=== PATIENT | female | born 1955 | race Caucasian/White ===

== ENCOUNTER 2022-09-24 15:07 | Outpatient (REF) | payer BC, SELFPAY ==
--- NOTE | ~2022-09-24 | XR_ITS ---
EXAMINATION: XR CHEST CLINICAL INFORMATION: Chronic cough COMPARISON: None available. TECHNIQUE: 2 views of the chest were obtained. FINDINGS: The cardiac and mediastinal contours are normal. The lungs are clear. No pleural effusion or pneumothorax. Mild old-appearing T8 vertebral body compression fracture. Degenerative changes of the spine. XR/XR chest 2V IMPRESSION: No evidence for acute disease in the chest.
== END 2022-09-24 15:08 | disposition home or self-care (01) ==
LOC: HO.XRAY 15:07
PROVIDERS: PCP Internal Medicine; Visit Provider Hospitalist
DX: R05.3 Chronic cough (principal); R06.00 Dyspnea, unspecified; K14.8 Other diseases of tongue
CPT/HCPCS: 71046

== ENCOUNTER 2022-09-27 10:46 | Outpatient (REF) | payer BC, SELFPAY ==
--- NOTE | 2022-09-27 12:01 | PFT_ITS ---
INDICATION: Asthma. SPIROMETRY: FEV1 to FVC of 76% with an FEV1 of 1.9 L, which is 79% predicted and an FVC of 2.5 L, which is 79% predicted. No significant response to bronchodilators noted. To note, the [id number] decreased down to 62% predicted. Maximum voluntary ventilation 66% predicted. LUNG VOLUMES: Total lung capacity 95% predicted. DIFFUSION CAPACITY: 100% predicted. COMPARISON: None. INTERPRETATION: No obstructive nor restrictive ventilatory defects identified. No significant response to bronchodilator is noted. There is mild decrease in the maximum voluntary ventilation secondary to likely deconditioning. Lung volumes are within normal limits. Diffusion capacity is within normal limits. If asthma is in the differential, a methacholine challenge may be helpful in assessing for hyperreactive airways. Clinical correlation warranted. Sanjiv Martel MD MR/MODL / [id number]
== END 2022-09-27 10:47 | disposition home or self-care (01) ==
LOC: HO.RESP 10:46
PROVIDERS: PCP Internal Medicine; Visit Provider Hospitalist
DX: R05.3 Chronic cough (principal)
CPT/HCPCS: 94060; 94727; 94729

== ENCOUNTER 2023-01-24 13:51 | Outpatient (AMB) | payer BC, SELFPAY ==
--- NOTE | 2023-01-24 13:59 | MHC.OFFVIS ---
Intake Vital Signs 01/24/23 14:12 Height 5 ft 4 in Weight 181 lb 2 oz BMI 31.1 BP 136/70 Blood Pressure Location Lt brachial Position Sitting Respiration 16 Pulse 88 Pulse Source Pulse Oximeter Pulse Oximetry (%) 96 Oxygen Delivery Method Room Air Intake Visit Reasons: BACK PAIN/RIGHT HIP PAIN Allergies No Known Allergies Allergy (Verified 01/24/23 14:02) HPI HPI Comments History of Present Illness Details Amarilis is a very pleasant 67 year old female who presents to the office today for evaluation management of her chronic back and right hip pain. Patient reports that she has been suffering with this pain for many years. She has a history of surgery to her lumbar spine in 2017 or 2018. Patient reports that she fell several months ago and injured her lower back. She was evaluated by knowing the orthopedic surgeons and her ?back doctor ?. She states 1 of them told her she had a L5 compression fracture, the other did not agree with this finding. She states that neither of them have offered her any further treatment for her pain. She is currently taking Motrin as needed for pain. She states that Tylenol does nothing for her pain. Patient had imaging of her lumbar spine and right hip, these were done at outside facility so results are not available for review. She had injection for right GTB that did not improve her pain. The patient states that she has not been able to tolerate physical therapy or home exercise program as this is too painful for her. Patient denies radiation of the pain down either leg, she denies shooting, stabbing or shocking radiating pain. Pain is worse with sitting for extended periods time, standing for extended periods time, climbing stairs and laying on her right side. Patient denies red flag symptoms including new loss of bowel, bladder or saddle anesthesia. In terms of muscle damage condition is described as spasming, hot, burning, stabbing, sharp, tingling, tiring, cramping, pins and needles. Pain is negatively impacting patient's general activity, walking, sleep, mood and work. PFSH Medical History (Updated 01/24/23 @ 14:54 by Bea Cantor APRN, BILLIARD PLAYER) Dyspnea Chronic cough Social History (Updated 09/24/22 @ 15:18 by NEO Peguero) Patient Tobacco Use Status: Former Tobacco user Tobacco use type: Cigarette Years Smoked: 5 Years Review of Systems Const All systems reviewed & are unremarkable except as noted in HPI and below Physical Exam Vital Signs: Last Vital Signs Pulse 88 01/24/23 14:12 Resp 16 01/24/23 14:12 BP 136/70 01/24/23 14:12 Pulse Ox 96 01/24/23 14:12 Oxygen Delivery Method Room Air 01/24/23 14:12 BMI result Body Mass Index 31.1 General: awake, alert, oriented. Answers questions appropriately. Fully engaged in examination. Skin: warm, dry, intact HEENT: Normocephalic. Hearing intact. Cardiac: External chest normal in appearance. Respiratory: No cough, audible wheezing or stridor. Abdomen: without gross distension. MS: No obvious swelling or deformities. Able to stand on bilateral tiptoes and bilateral heels.? Able to transition from sit to stand unassisted. Ambulates with bilaterally normal heel strike and toe off Neurological: Oriented to person, place, time and situation. Thought process intact. Psychiatric: Appropriate mood and affect. Good judgment and insight. Back/Spine/Pelvis Other: Lumbar exam: Able to stand on bilateral tiptoes and bilateral heels. Able to transition from sit to stand unassisted. Ambulates with bilaterally normal heel strike and toe off Visual inspection without gross abnormality Tender to palpation over PSIS with increase in pain to the right groin Tender to palpation over GTB ROM: limited secondary to pain with extension to 15 degrees. flexion to 60degrees Strength: 5/5 BLE Sensation: intact and symmetric BLE DTR: intact and symmetric Straight leg raises with and without dorsiflexion negative bilaterally Facet loading positive bilaterally GERONIMO positive on the right Thigh thrust positive on the right SI compression positive on the right Gaenslen positive on right Assessment & Plan Assessment & Plan (1) Sacroiliac joint dysfunction of right side: Code(s): M53.3 - Sacrococcygeal disorders, not elsewhere classified (2) Post laminectomy syndrome: Code(s): M96.1 - Postlaminectomy syndrome, not elsewhere classified (3) Lumbar spondylosis: Code(s): M47.816 - Spondylosis without myelopathy or radiculopathy, lumbar region Plan Amarilis is a very pleasant 67-year-old female who presented to the office today for evaluation management of her chronic lower back and right hip pain History, physical exam and provocative testing was consistent with right sacroiliac joint dysfunction, lumbar spondylosis and post laminectomy syndrome MRI lumbar spine without contrast ordered for further evaluation. Tizanidine 2 mg p.o. q.h.s. as needed for muscle spasm Patient has exhausted conservative therapy including Tylenol, nonsteroidal anti-inflammatory medication, injections. Patient is unable to tolerate physical therapy or home exercise program due to significant pain increase with activity. Discussed options for treatment including diagnostic interventional testing, steroid injections, peripheral nerve stimulation with Sprint, RFA and more permanent neuromodulation. Will schedule for fluoroscopy guided right diagnostic sacroiliac joint injection with local anesthetic. All questions and concerns have been answered and patient agrees with the plan. Follow up after injections and sooner if needed. Orders: Orders MR lumbar spine wo/w con Today M96.1 - Postlaminectomy syndrome, not elsewhere classified Medications: New tizanidine 2 mg PO BEDTIME PRN 30 tabs 0RF muscle spasticity Coding Level of Care Code New Pt Level 4 (35242) Diagnoses Sacroiliac joint dysfunction of right side M53.3 Post laminectomy syndrome M96.1 Lumbar spondylosis M47.816
[2023-01-24 14:12] VITALS: BP 136/70; PULSE 88; RESP 16; O2SAT 96; BMI 31.1
== END 2023-01-24 14:35 | disposition home or self-care (01) ==
PROVIDERS: PCP Internal Medicine; Visit Provider Registered Nurse Emergency
DX: M53.3 Sacrococcygeal disorders, not elsewhere classified (principal); M96.1 Postlaminectomy syndrome, not elsewhere classified; M47.816 Spondylosis without myelopathy or radiculopathy, lumbar region
CPT/HCPCS: 99204

== ENCOUNTER → 2023-01-24 13:51 | Outpatient (BNVA) | payer BC, SELFPAY | PROVIDERS: PCP Internal Medicine; Visit Provider Registered Nurse Emergency ==

== ENCOUNTER 2023-02-11 06:11 | Outpatient (REF) | payer BC, SELFPAY ==
--- NOTE | ~2023-02-11 | FL_ITS ---
EXAMINATION: XR FLUOROSCOPY WITH IMAGES CLINICAL INFORMATION: Sacrococcygeal disorders, not elsewhere classified. COMPARISON: None available. TECHNIQUE: Fluoroscopy Supervised By: Dr. Yusef Hernandez. Fluoroscopy Time: 0.1 minute. Cumulative Dose: 2.01 mGy. DAP: 0.0349 Gycm2. Images: 1. FINDINGS: Image demonstrates needle placement and contrast injection over the left sacroiliac joint FL/FL guidance in treatment room IMPRESSION: Fluoroscopy guidance for pain management procedure
== END 2023-02-11 06:12 | disposition home or self-care (01) ==
LOC: CF 06:11
PROVIDERS: Visit Provider Anesthesiology
DX: M53.3 Sacrococcygeal disorders, not elsewhere classified (principal); M96.1 Postlaminectomy syndrome, not elsewhere classified; M47.816 Spondylosis without myelopathy or radiculopathy, lumbar region
CPT/HCPCS: 27096; J2795; J3301; Q9967

== ENCOUNTER 2023-02-11 07:12 | Outpatient (AMB) | payer BC, SELFPAY ==
[2023-02-11 07:36] VITALS: BP 128/70; PULSE 77; RESP 12; O2SAT 98; BMI 30.9
--- NOTE | 2023-02-11 07:36 | A.OFFVIS_ITS ---
Intake Vital Signs 02/11/23 07:36 02/11/23 08:35 Height 5 ft 4 in 5 ft 4 in Weight 180 lb 180 lb BMI 30.9 30.9 BP 128/70 122/64 Blood Pressure Location Lt brachial Lt brachial Position Sitting Sitting Respiration 12 14 Pulse 77 77 Pulse Source Pulse Oximeter Pulse Oximeter Pulse Oximetry (%) 98 97 Oxygen Delivery Method Room Air Room Air Comment Pre-op post-op Intake Visit Reasons: R DX SIJ INJ/LOCAL Allergies No Known Allergies Allergy (Verified 02/11/23 07:37) PFSH Medical History (Updated 01/24/23 @ 14:54 by Bea Cantor APRN, CAREER PLACEMENT SERVICES COUNSELOR) Dyspnea Chronic cough Social History (Updated 09/24/22 @ 15:18 by Melody Reich Brenda) Patient Tobacco Use Status: Former Tobacco user Tobacco use type: Cigarette Years Smoked: 5 Years Physical Exam Vital Signs: Last Vital Signs Pulse 77 02/11/23 08:35 Resp 14 02/11/23 08:35 BP 122/64 02/11/23 08:35 Pulse Ox 97 02/11/23 08:35 Oxygen Delivery Method Room Air 02/11/23 08:35 BMI result Body Mass Index 30.9 Assessment & Plan Assessment & Plan (1) Sacroiliac joint dysfunction of right side: Code(s): M53.3 - Sacrococcygeal disorders, not elsewhere classified Plan: Right diagnostic sacroiliac joint injection Informed consent was explained thoroughly to the patient. All questions about benefits and risks for the procedure were answered. Patient came to the operating room and was positioned prone on the operating table with the pillow under the pelvis. Time out was performed delineating name and of the patient, allergies and the nature of the procedure. The lower back and buttocks of the patient were prepped with ChloraPrep prepped and draped with sterile utility towels. C-arm was brought over the operating field and sq picture of patient's pelvis was demonstrated on the screen. For the right joint tilting C-arm contralateral to the site of the joint the most posterior portion of the joints was superimposed with anterior silhouette of the joint. Skin was injected in the projection of the joint slightly medial to the location of the joint with 25 gauge 1/2 inch needle using local lidocaine 2% .After that 22 gauge 3 and 1/2 inch needle was driven to the right joint in tunnel vision fashion. When needle entered the joint capsule injection of the contrast was performed demonstrating intra-articular and minimally periarticular spread of the contrast. After that 4 cc. of ropivacaine 0.5% was injected into the joint. Upon completion of the injections the needle was removed Sterile dr essing was applied. Upon completion of the injection patient was taken outside of the operating room to the recovery room where recovered uneventfully. (2) Post laminectomy syndrome: Code(s): M96.1 - Postlaminectomy syndrome, not elsewhere classified (3) Lumbar spondylosis: Code(s): M47.816 - Spondylosis without myelopathy or radiculopathy, lumbar region Daniel Olmos is a very pleasant 67-year-old female who presented to the office today for evaluation management of her chronic lower back and right hip pain History, physical exam and provocative testing was consistent with right sacroiliac joint dysfunction, lumbar spondylosis and post laminectomy syndrome MRI lumbar spine without contrast ordered for further evaluation. Tizanidine 2 mg p.o. q.h.s. as needed for muscle spasm Patient has exhausted conservative therapy including Tylenol, nonsteroidal anti- inflammatory medication, injections. Patient is unable to tolerate physical therapy or home exercise program due to significant pain increase with activity. Discussed options for treatment including diagnostic interventional testing, steroid injections, peripheral nerve stimulation with Sprint, RFA and more permanent neuromodulation. Will schedule for fluoroscopy guided right diagnostic sacroiliac joint injection with local anesthetic. All questions and concerns have been answered and patient agrees with the plan. Follow up after injections and sooner if needed. Orders: Orders FL guidance in treatment room Today M53.3 - Sacrococcygeal disorders, not elsewhere classified Coding Level of Care Code Procedure Only Diagnoses Sacroiliac joint dysfunction of right side M53.3 Post laminectomy syndrome M96.1 Lumbar spondylosis M47.816
[2023-02-11 08:35] VITALS: BP 122/64; PULSE 77; RESP 14; O2SAT 97; BMI 30.9
== END 2023-02-11 08:27 | disposition home or self-care (01) ==
LOC: HO.PMCPRC 07:12
PROVIDERS: PCP Internal Medicine; Visit Provider Anesthesiology
DX: M53.3 Sacrococcygeal disorders, not elsewhere classified (principal); M96.1 Postlaminectomy syndrome, not elsewhere classified; M47.816 Spondylosis without myelopathy or radiculopathy, lumbar region
CPT/HCPCS: 27096

== ENCOUNTER 2023-02-13 08:12 | Outpatient (AMB) | payer BC, SELFPAY ==
[2023-02-13 08:24] VITALS: BP 149/73; PULSE 75; RESP 18; O2SAT 96; BMI 30.9
--- NOTE | 2023-02-13 08:24 | MHC.OFFVIS ---
Intake Vital Signs 02/13/23 08:24 Height 5 ft 4 in Weight 180 lb BMI 30.9 BP 149/73 H Blood Pressure Location Lt brachial Position Sitting Respiration 18 Pulse 75 Pulse Source Pulse Oximeter Pulse Oximetry (%) 96 Oxygen Delivery Method Room Air Intake Visit Reasons: R DX SIJ INJ 02/11/23 / Confirmed Allergies No Known Allergies Allergy (Verified 02/13/23 08:23) HPI HPI Comments History of Present Illness Details Prior: Amarilis presents back to the office today for follow up 2 days s/p right diagnostic SIJ injection. Patient reports pain today is 1/10, feels good . She states after the procedure she was able to be more active, she even raked her gardens. She does report after yard work her pain increased but has since improved. Overall, she reports approx 70% pain relief with improvement in function and mobility. She is still waiting for the MRI appt. Prior: Amarilis is a very pleasant 67 year old female who presents to the office today for evaluation management of her chronic back and right hip pain. Patient reports that she has been suffering with this pain for many years. She has a history of surgery to her lumbar spine in 2017 or 2018. Patient reports that she fell several months ago and injured her lower back. She was evaluated by knowing the orthopedic surgeons and her ?back doctor ?. She states 1 of them told her she had a L5 compression fracture, the other did not agree with this finding. She states that neither of them have offered her any further treatment for her pain. She is currently taking Motrin as needed for pain. She states that Tylenol does nothing for her pain. Patient had imaging of her lumbar spine and right hip, these were done at outside facility so results are not available for review. She had injection for right GTB that did not improve her pain. The patient states that she has not been able to tolerate physical therapy or home exercise program as this is too painful for her. Patient denies radiation of the pain down either leg, she denies shooting, stabbing or shocking radiating pain. Pain is worse with sitting for extended periods time, standing for extended periods time, climbing stairs and laying on her right side. Patient denies red flag symptoms including new loss of bowel, bladder or saddle anesthesia. In terms of muscle damage condition is described as spasming, hot, burning, stabbing, sharp, tingling, tiring, cramping, pins and needles. Pain is negatively impacting patient's general activity, walking, sleep, mood and work. [facility] Medical History (Updated 01/24/23 @ 14:54 by Bea Cantor APRN, SUPERVISOR [employer]) Dyspnea Chronic cough Social History (Updated 09/24/22 @ 15:18 by Melody Reich [facility]) Patient Tobacco Use Status: Former Tobacco user Tobacco use type: Cigarette Years Smoked: 5 Years Review of Systems Const All systems reviewed & are unremarkable except as noted in HPI and below Physical Exam Vital Signs: Last Vital Signs Pulse 75 02/13/23 08:24 Resp 18 02/13/23 08:24 BP 149/73 H 02/13/23 08:24 Pulse Ox 96 02/13/23 08:24 Oxygen Delivery Method Room Air 02/13/23 08:24 BMI result Body Mass Index 30.9 General: awake, alert, oriented. Answers questions appropriately. Fully engaged in examination. Skin: warm, dry, intact HEENT: Normocephalic. Hearing intact. Cardiac: External chest normal in appearance. Respiratory: No cough, audible wheezing or stridor. Abdomen: without gross distension. MS: No obvious swelling or deformities. Able to transition from sit to stand unassisted. Ambulates with bilaterally normal heel strike and toe off Neurological: Oriented to person, place, time and situation. Thought process intact. Psychiatric: Appropriate mood and affect. Good judgment and insight. Assessment & Plan Assessment & Plan (1) Sacroiliac joint dysfunction of right side: Code(s): M53.3 - Sacrococcygeal disorders, not elsewhere classified (2) Post laminectomy syndrome: Code(s): M96.1 - Postlaminectomy syndrome, not elsewhere classified (3) Lumbar spondylosis: Code(s): M47.816 - Spondylosis without myelopathy or radiculopathy, lumbar region Daniel Olmos is a very pleasant 68-year-old female who presented to the office today for follow up 2 days s/p right diagnostic SIJ injection. She reports improvement in pain(70%), function and mobility after diagnostic injection. MRI lumbar spine without contrast ordered for further evaluation, patient is awaiting a call to schedule. Confirmed with [facility] that they have received the order. C/W Tizanidine 2 mg p.o. q.h.s. as needed for muscle spasm Patient has exhausted conservative therapy including Tylenol, nonsteroidal anti-inflammatory medication, injections. Patient is unable to tolerate physical therapy or home exercise program due to significant pain increase with activity. Discussed options for treatment including diagnostic interventional testing, steroid injections, peripheral nerve stimulation with Sprint, RFA and more permanent neuromodulation. She would like to proceed with fluoroscopy guided right therapeutic sacroiliac joint injection with local anesthetic. All questions and concerns have been answered and patient agrees with the plan. Follow up after injections/MRI, sooner if needed. Coding Level of Care Code Est Pt Level 3 (18701) Diagnoses Sacroiliac joint dysfunction of right side M53.3 Post laminectomy syndrome M96.1 Lumbar spondylosis M47.816
== END 2023-02-13 08:30 | disposition home or self-care (01) ==
PROVIDERS: PCP Internal Medicine; Visit Provider Registered Nurse Emergency
DX: M53.3 Sacrococcygeal disorders, not elsewhere classified (principal); M96.1 Postlaminectomy syndrome, not elsewhere classified; M47.816 Spondylosis without myelopathy or radiculopathy, lumbar region
CPT/HCPCS: 99213

== ENCOUNTER → 2023-02-13 08:12 | Outpatient (BNVA) | payer BC, SELFPAY | PROVIDERS: PCP Internal Medicine; Visit Provider Registered Nurse Emergency ==

== ENCOUNTER 2023-02-25 06:34 | Outpatient (REF) | payer BC, SELFPAY ==
--- NOTE | ~2023-02-25 | FL_ITS ---
EXAMINATION: XR FLUOROSCOPY WITH IMAGES CLINICAL INFORMATION: Sacrococcygeal disorders, not elsewhere classified. COMPARISON: None available. TECHNIQUE: Fluoroscopy Supervised By: Dr. Yusef Hernandez. Fluoroscopy Time: 0.1 minute. Cumulative Dose: 3.35 mGy. DAP: 0.0376 Gycm2. Images: 1. FINDINGS: Image demonstrates needle placement and contrast injection over the right sacroiliac joint. FL/FL guidance in treatment room IMPRESSION: Fluoroscopy guidance for pain management procedure
== END 2023-02-25 06:35 | disposition home or self-care (01) ==
LOC: CF 06:34
PROVIDERS: PCP Internal Medicine; Visit Provider Anesthesiology
DX: M53.3 Sacrococcygeal disorders, not elsewhere classified (principal); M96.1 Postlaminectomy syndrome, not elsewhere classified; M47.816 Spondylosis without myelopathy or radiculopathy, lumbar region
CPT/HCPCS: 27096; J2795; J3301; Q9967

== ENCOUNTER 2023-02-25 10:28 | Outpatient (AMB) | payer BC, SELFPAY ==
--- NOTE | 2023-02-25 10:36 | MHC.OFFVIS ---
Intake Vital Signs 02/25/23 10:48 02/25/23 11:37 Height 5 ft 4 in 5 ft 4 in Weight 180 lb 180 lb BMI 30.9 30.9 BP 118/62 128/92 H Blood Pressure Location Lt brachial Rt brachial Position Sitting Sitting Respiration 12 12 Pulse 76 69 Pulse Source Pulse Oximeter Pulse Oximeter Pulse Oximetry (%) 98 97 Oxygen Delivery Method Room Air Room Air Comment pre-op post-op Intake Visit Reasons: R SIJ STEROID INJ/LOCAL Allergies No Known Allergies Allergy (Verified 02/25/23 10:50) PFSH Medical History (Updated 02/20/23 @ 09:34 by eBa Cantor APRN, PAVING MACHINE OPERATOR) Dyspnea Chronic cough Social History (Updated 09/24/22 @ 15:18 by Melody Reich Brenda) Patient Tobacco Use Status: Former Tobacco user Tobacco use type: Cigarette Years Smoked: 5 Years Physical Exam Vital Signs: Last Vital Signs Pulse 69 02/25/23 11:37 Resp 12 02/25/23 11:37 BP 128/92 H 02/25/23 11:37 Pulse Ox 97 02/25/23 11:37 Oxygen Delivery Method Room Air 02/25/23 11:37 BMI result Body Mass Index 30.9 Assessment & Plan Assessment & Plan (1) Sacroiliac joint dysfunction of right side: Code(s): M53.3 - Sacrococcygeal disorders, not elsewhere classified Plan: Right therapeutic sacroiliac joint injection. Informed consent was explained thoroughly to the patient. All questions about benefits and risks for the procedure were answered. Patient came to the operating room and was positioned prone on the operating table with the pillow under the pelvis. Time out was performed delineating name and of the patient, allergies and the nature of the procedure. The lower back and buttocks of the patient were prepped with ChloraPrep prepped and draped with sterile utility towels. C-arm was brought over the operating field and sq picture of patient's pelvis was demonstrated on the screen. For the right joint tilting C-arm contralateral to the site of the joint the most posterior portion of the joints was superimposed with anterior silhouette of the joint. Skin was injected in the projection of the joint slightly medial to the location of the joint with 25 gauge 1/2 inch needle using local lidocaine 2% .After that 22 gauge 3 and 1/2 inch needle was driven to the right joint in tunnel vision fashion. When needle entered the joint capsule injection of the contrast was performed demonstrating intra-articular and minimally periarticular spread of the contrast. After that 4 cc. of ropivacaine 0.5% mixed with kenalog 40 mg was injected into the joint. Upon completion of the injections the needle was removed Sterile dressing was applied. Upon completion of the injection patient was taken outside of the operating room to the recovery room . She started to complain on chest pain after the procedure , her BP was moderately elevated as above compare to base line. The patient was transferred to the ER for observation and treatment. (2) Post laminectomy syndrome: Code(s): M96.1 - Postlaminectomy syndrome, not elsewhere classified (3) Lumbar spondylosis: Code(s): M47.816 - Spondylosis without myelopathy or radiculopathy, lumbar region Daniel Olmos is a very pleasant 68-year-old female who presented to the office today for follow up 2 days s/p right diagnostic SIJ injection. She reports improvement in pain(70%), function and mobility after diagnostic injection. MRI lumbar spine without contrast ordered for further evaluation, patient is awaiting a call to schedule. Confirmed with [facility] that they have received the order. C/W Tizanidine 2 mg p.o. q.h.s. as needed for muscle spasm Patient has exhausted conservative therapy including Tylenol, nonsteroidal anti-inflammatory medication, injections. Patient is unable to tolerate physical therapy or home exercise program due to significant pain increase with activity. Discussed options for treatment including diagnostic interventional testing, steroid injections, peripheral nerve stimulation with Sprint, RFA and more permanent neuromodulation. She would like to proceed with fluoroscopy guided right therapeutic sacroiliac joint injection with local anesthetic. All questions and concerns have been answered and patient agrees with the plan. Follow up after injections/MRI, sooner if needed. Orders: Orders FL guidance in treatment room Today M53.3 - Sacrococcygeal disorders, not elsewhere classified Coding Level of Care Code Procedure Only Diagnoses Sacroiliac joint dysfunction of right side M53.3 Post laminectomy syndrome M96.1 Lumbar spondylosis M47.816
[2023-02-25 10:48] VITALS: BP 118/62; PULSE 76; RESP 12; O2SAT 98; BMI 30.9
[2023-02-25 11:37] VITALS: BP 128/92; PULSE 69; RESP 12; O2SAT 97; BMI 30.9
== END 2023-02-25 11:09 | disposition home or self-care (01) ==
LOC: HO.PMCPRC 10:28
PROVIDERS: PCP Internal Medicine; Visit Provider Anesthesiology
DX: M53.3 Sacrococcygeal disorders, not elsewhere classified (principal)
CPT/HCPCS: 27096

== ENCOUNTER 2023-02-25 11:30 | Emergency (ER) | payer BC, SELFPAY ==
[2023-02-25 11:53] VITALS: BMI 30.9
[2023-02-25 11:57] VITALS: BP 143/87; PULSE 68; RESP 15; TEMP 36.5; O2SAT 100
--- NOTE | 2023-02-25 11:59 | PC.NURSE ---
Patient arrived from [facility] outpatient office after having a steroid injection in her right lower back . Per patient she has had these shots 2 times before without any reactions. Reports about 5 minutes after shot she started having sharp shooting pains down her right arm that went to her hip. Placed initially placed on 02 but 02 removed sating 98%. Patient reports pain has improved since arival but her right leg still feels numb. Denies chest pain or sob. VSS. Patient reports unsteady ambulation after infection
--- NOTE | 2023-02-25 12:50 | ED.GENADULT ---
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 Patient immediately felt a jolting sensation go up and down her right flank after receiving injection. This lasted a few seconds. Patient states that she often has these jolting episodes secondary to chronic back pain. Additionally she reports decreased sensation to the lateral aspect of her right foot that occurred after the corticosteroid injection. States she had full sensation in her right foot prior to injection. No tingling/weakness/pain to RLE. She is able to ambulate with steady gait. Reports receiving corticosteroid injections in the past without adverse reaction. Denies fever, headache, dizziness, rash, chest pain, SOB, throat closing sensation, difficulty swallowing, abdominal pain, N/V, or diarrhea. Related Data Home Medications Medication Instructions Recorded Confirmed albuterol sulfate 90 mcg/actuation 2 inh inhalation Q4-6H PRN 09/24/22 breath activated powder inhaler alendronate 70 mg tablet 70 mg PO QWEEK 09/24/22 amlodipine 10 mg tablet 10 mg PO DAILY 09/24/22 atorvastatin 10 mg tablet 10 mg PO DAILY 09/24/22 citalopram 20 mg tablet 20 mg PO DAILY 09/24/22 losartan 50 mg tablet 50 mg PO DAILY 09/24/22 meclizine 12.5 mg tablet 12.5 mg PO TID PRN 09/24/22 Previous Rx's Medication Instructions Recorded benzonatate 200 mg capsule 200 mg PO BID PRN cough 30 days 09/24/22 #60 caps tizanidine 2 mg tablet 2 mg PO BEDTIME PRN muscle 02/18/23 spasticity #30 tabs Allergies Allergy/AdvReac Type Severity Reaction Status Date / Time No Known Allergies Allergy Verified 02/25/23 10:50 Review of Systems Review of Systems: Constitutional: No fever, chills, fatigue, night sweats, weight changes ENT/Mouth: No ear pain, hearing loss, nasal congestion, sinus pain, rhinorrhea, sore throat Eyes: No eye pain, swelling, redness, vision changes, discharge Cardio: No chest pain, palpitations, CHANEL, orthopnea, peripheral edema Pulm: No SOB, cough, sputum, wheezing, dyspnea, hemoptysis GI: No nausea, vomiting, hematemesis, abdominal pain, diarrhea, constipation, hematochezia, melena : No irregular bleeding, dysuria, frequency, urgency, hesitancy, hematuria, flank pain, urinary flow changes, urinary incontinence or retention MSK: No back pain, neck pain, joint pain, myalgias Skin: No lesions, rashes Neuro: No weakness, +numbness to right foot, No paresthesias, LOC, dizziness, headache All other systems reviewed and are negative. [facility] Past Medical History Attestation statement: The following information was validated with the patient. Source: old records reviewed and nursing notes reviewed Medical History (Updated 02/25/23 @ 12:58 by ROYER Root) Dyspnea Chronic cough Social History Social History (Updated 09/24/22 @ 15:18 by NEO Peguero) Alcohol intake: former Patient Tobacco Use Status: Former Tobacco user Tobacco use type: Cigarette Years Smoked: 5 Years Smoked in Last 30 Days: No Use of substances other than those prescribed or required for medical reasons: No Advance Directives: Yes Advance Directives Information Provided: Yes Advance Directives on File: No Physical Exam ED Vital Signs: Vital Signs - 24 hr 02/25/23 11:57 Temperature 97.7 F Pulse Rate 68 Respiratory Rate 15 Blood Pressure 143/87 H Pulse Oximetry 100 Oxygen Delivery Method Room Air Oxygen Flow Rate 4 BMI result Body Mass Index 30.9 VSS Const General: cooperative, comfortable, no acute distress, alert and awake Orientation/consciousness: patient oriented x3 Limitations: no limitations HENMT Head: Yes normal to inspection Face and sinus: No edema Mouth: Normal oral and palatal mucosa present, lip normal, tongue normal and no muffled voice Throat: Yes posterior oropharynx normal, Yes tonsils normal and Yes uvula midline Eyes General: appearance normal, both eyes and all related structures Conjunctivae: conjunctivae normal Sclerae: sclerae normal Pupils: Equal, round and reactive pupils present Neck Neck: Yes normal visual inspection and Yes no lymphadenopathy Resp Effort & Inspection: normal respiratory effort and able to speak in complete sentences Auscultation: clear to auscultation bilaterally Cardio Rate: regular rate Rhythm: regular rhythm Peripheral pulses: radial pulses present GI Inspection: Yes normal to inspection Palpation (GI): Soft to palpation and nontender Back/Spine/Pelvis Other: + Betadine scrub noted to skin overlying lumbar spine. Bandage covering injection site. No active bleeding or surrounding erythema/ edema. No midline spinous tenderness. No paraspinal muscle tenderness to palpation. no step off deformity. Skin General skin exam: no rashes or lesions noted Neuro Other: Strength 5/5 intact throughout.?No saddle anesthesia.?Sensation intact to light touch. NV intact distally.? General: patient oriented x3, gait normal and moves all extremities Cranial nerves: Yes CN's II-XII intact bilaterally and Yes Equal, round and reactive pupils present Extrem General: Yes normal to inspection, Yes capillary refill normal and Yes no clubbing, cyanosis or edema Course Course Course Narrative: Patient's presentation not consistent with adverse reaction to corticosteroid injection. There is no respiratory distress. No rashes or swelling noted. She is well appearing and reports feeling well. She endorses lateral right foot numbness however now states she believes this may be related to her chronic knee pain. My examination of patient is unremarkable and I do not feel as though further work up is warranted. Case discussed with my attending physician, Dr. Salmon who is in agreement. 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 Posterior oropharynx without erythema or edema. Controlling secretions and speaking in complete sentences. No signs of respiratory distress. Lungs CTA b/l. RRR. Abd soft, NT/ND. Differential Diagnosis Differential Diagnoses: The differential diagnosis associated with the presentation includes As above. Admission/Observation Not indicated. Lab Data [facility] Lab Attestation statement: I reviewed the patient's lab results. Radiology Impression Discussion of test interpretation with radiology: I have reviewed the radiologist's reading. External Record Review External record reviewed: Inpatient record Critical Care Time Critical Care Time Critical Care Time: No Discharge Plan Discharge Clinical Impression: Paresthesia of foot Patient Disposition: Home, Self-Care Additional Instructions: You were seen in the ED today for possible allergic reaction to corticosteroid injection. There are currently no signs of acute allergic reaction and you are hemodynamically stable. Your symptoms may be consistent with chronic back pain. Please follow-up with your pain management doctor and primary care physician. If symptoms persist or worsen please return to the emergency department. In the case of an emergency call 911. Prescriptions: No Action tizanidine 2 mg tablet 2 mg PO BEDTIME PRN (Reason: muscle spasticity) Qty: 30 0RF citalopram 20 mg tablet 20 mg PO DAILY losartan 50 mg tablet 50 mg PO DAILY meclizine 12.5 mg tablet 12.5 mg PO TID PRN atorvastatin 10 mg tablet 10 mg PO DAILY amlodipine 10 mg tablet 10 mg PO DAILY alendronate 70 mg tablet 70 mg PO QWEEK albuterol sulfate 90 mcg/actuation aerosol powdr breath activated 2 inh inhalation Q4-6H PRN benzonatate 200 mg capsule 200 mg PO BID PRN (Reason: cough) 30 Days Qty: 60 0RF Interventions: ED Discharge Assessment Last Done: 02/25/23 13:13 Discharge Date/Time: 02/25/23 13:15
--- NOTE | 2023-02-25 13:14 | PC.NURSE ---
Discahrge plan reviewed with patient who verbalized understanding, brought to waiting room in wheelchair friend is picking patient up
== END 2023-02-25 13:15 | disposition home or self-care (01) ==
PROVIDERS: Emergency Provider Emergency Medicine; PCP Internal Medicine
DX: R20.2 Paresthesia of skin (principal)
CPT/HCPCS: 99282; 99284

== ENCOUNTER 2023-04-01 08:12 | Outpatient (AMB) | payer BC, SELFPAY ==
[2023-04-01 08:34] VITALS: BP 131/75; PULSE 79; RESP 16; O2SAT 94; BMI 30.4
--- NOTE | 2023-04-01 08:34 | MHC.OFFVIS ---
Intake Vital Signs 04/01/23 08:34 Height 5 ft 4 in Weight 177 lb 2 oz BMI 30.4 BP 131/75 Blood Pressure Location Lt brachial Position Sitting Respiration 16 Pulse 79 Pulse Source Pulse Oximeter Pulse Oximetry (%) 94 Oxygen Delivery Method Room Air Intake Visit Reasons: RIGHT SIJ STEROID INJ 02/25/23 & MRI Results Allergies No Known Allergies Allergy (Verified 04/01/23 08:32) HPI HPI Comments History of Present Illness Details Amarilis presents back to the office today for follow up therapeutic Right SI joint injection 02/13/2023 and review of recent MRI. MRI reviewed with patient, results as per below. Patient reports pain today 7/10, pain over right GTB today. Tender to palpation. She has started PT and is doing HEP for her back. Patient did not feel like she had any benefit from the therapeutic right SI joint injection. Prior: Amarilis presents back to the office today for follow up 2 days s/p right diagnostic SIJ injection. Patient reports pain today is 1/10, feels good . She states after the procedure she was able to be more active, she even raked her gardens. She does report after yard work her pain increased but has since improved. Overall, she reports approx 70% pain relief with improvement in function and mobility. She is still waiting for the MRI appt. Prior: Amarilis is a very pleasant 67 year old female who presents to the office today for evaluation management of her chronic back and right hip pain. Patient reports that she has been suffering with this pain for many years. She has a history of surgery to her lumbar spine in 2017 or 2018. Patient reports that she fell several months ago and injured her lower back. She was evaluated by knowing the orthopedic surgeons and her ?back doctor ?. She states 1 of them told her she had a L5 compression fracture, the other did not agree with this finding. She states that neither of them have offered her any further treatment for her pain. She is currently taking Motrin as needed for pain. She states that Tylenol does nothing for her pain. Patient had imaging of her lumbar spine and right hip, these were done at outside facility so results are not available for review. She had injection for right GTB that did not improve her pain. The patient states that she has not been able to tolerate physical therapy or home exercise program as this is too painful for her. Patient denies radiation of the pain down either leg, she denies shooting, stabbing or shocking radiating pain. Pain is worse with sitting for extended periods time, standing for extended periods time, climbing stairs and laying on her right side. Patient denies red flag symptoms including new loss of bowel, bladder or saddle anesthesia. In terms of muscle damage condition is described as spasming, hot, burning, stabbing, sharp, tingling, tiring, cramping, pins and needles. Pain is negatively impacting patient's general activity, walking, sleep, mood and work. [facility] Medical History (Updated 04/01/23 @ 08:55 by Bea Cantor APRN, CNP) Dyspnea Chronic cough Social History (Updated 09/24/22 @ 15:18 by NEO Peguero) Alcohol intake: former Patient Tobacco Use Status: Former Tobacco user Tobacco use type: Cigarette Years Smoked: 5 Years Review of Systems Const All systems reviewed & are unremarkable except as noted in HPI and below Physical Exam Vital Signs: Last Vital Signs Pulse 79 04/01/23 08:34 Resp 16 04/01/23 08:34 BP 131/75 04/01/23 08:34 Pulse Ox 94 04/01/23 08:34 Oxygen Delivery Method Room Air 04/01/23 08:34 BMI result Body Mass Index 30.4 General: awake, alert, oriented. Answers questions appropriately. Fully engaged in examination. Skin: warm, dry, intact HEENT: Normocephalic. Hearing intact. Cardiac: External chest normal in appearance. Respiratory: No cough, audible wheezing or stridor. Abdomen: without gross distension. MS: No obvious swelling or deformities. Able to transition from sit to stand unassisted. Ambulates with bilaterally normal heel strike and toe off Tender to palpation over Right GTB Neurological: Oriented to person, place, time and situation. Thought process intact. Psychiatric: Appropriate mood and affect. Good judgment and insight. Office Procedures Therapeutic Injection Therapeutic Injection [id number] Point Injection 1 or 2 sites All charges added?: Procedure code (CPT) selection complete Office Meds triamcinolone acetonide 40 mg/mL suspension for injection Performing Provider: Bea Cantor APRN, CNP Performing Location: [facility] [place] [place] [facility] Administered by: Bea Cantor APRN, CNP on 04/01/23 09:01 Dose Route Admin Location Dispensed Lot Number Expiration Date [facility] Pit Shoveler 40 mg Infiltration 1 mL [id number] 10/12/24 [address]-2 [employer] bupivacaine (PF) 0.5 % (5 mg/mL) injection solution Performing Provider: Bea Cantor APRN, CNP Performing Location: [facility] [place] [place] [facility] Administered by: Bea Cantor APRN, CNP on 04/01/23 09:01 Dose Route Admin Location Dispensed Lot Number Expiration Date [facility] Pit Shoveler 6 mL Infiltration 10 mL [id number] 06/12/24 [id number] [facility]/Sweetie High Comments: Right Trochanteric Steroid Injection: After obtaining informed consent the patient exposed her right hip area. Time-out was obtained delineating correct site and side of the procedure. The area of trochanteric bursa on the right hip was prepped with ChloraPrep. Sterilely obtained Bupivacaine 0.5% 6cc mixed with Triamcinolone Acetonide 40mg was injected into the most pain painful point just above the palpated trochanter. Upon completion of the injection needle was withdrawn sterile Band-Aid was applied. The patient tolerated procedure well. No immediate side effects were noted. Results Reviewed Results Reviewed: 02/17/23 Assessment & Plan Assessment & Plan (1) Greater trochanteric bursitis of right hip: Code(s): M70.61 - Trochanteric bursitis, right hip (2) Sacroiliac joint dysfunction of right side: Code(s): M53.3 - Sacrococcygeal disorders, not elsewhere classified (3) Post laminectomy syndrome: Code(s): M96.1 - Postlaminectomy syndrome, not elsewhere classified (4) Lumbar spondylosis: Code(s): M47.816 - Spondylosis without myelopathy or radiculopathy, lumbar region Daniel Olmos is a very pleasant 68-year-old female who presented to the office today for follow up right therapeutic SIJ injection and review of MRI. She reports no relief of her pain after the therapeutic injection though today her pain is directly over the Right GTB. Right GT injection completed today, as per above. Patient tolerated well. No untoward effects noted at time of discharge, patient ambulated out of the office with steady gait. C/W Tizanidine 2 mg p.o. q.h.s. as needed for muscle spasm C/W PT and HEP as planned Discussed options for treatment including diagnostic interventional testing, steroid injections, peripheral nerve stimulation with Sprint, RFA and more permanent neuromodulation. Patient may consider fluoroscopy guided lumbar MBBs for axial back pain and lumbar facet arthropathy if pain persists after PT. All questions and concerns have been answered and patient agrees with the plan. Follow up in 4-6 weeks, sooner if needed. Orders: Orders Trigger Point Injection Today M70.61 - Trochanteric bursitis, right hip Coding Level of Care Code Est Pt Level 4 (11900) Diagnoses Greater trochanteric bursitis of right hip M70.61 Sacroiliac joint dysfunction of right side M53.3 Post laminectomy syndrome M96.1 Lumbar spondylosis M47.816 CPT Codes Therapeutic Injection - Ther Injection 1: [id number] Point Injection 1 or 2 sites ([id number])
== END 2023-04-01 08:51 | disposition home or self-care (01) ==
PROVIDERS: PCP Internal Medicine; Visit Provider Registered Nurse Emergency
DX: M70.61 Trochanteric bursitis, right hip (principal); M53.3 Sacrococcygeal disorders, not elsewhere classified; M96.1 Postlaminectomy syndrome, not elsewhere classified; M47.816 Spondylosis without myelopathy or radiculopathy, lumbar region
CPT/HCPCS: 20610; 99214

== ENCOUNTER → 2023-04-01 08:12 | Outpatient (BNVA) | payer BC, SELFPAY | PROVIDERS: PCP Internal Medicine; Visit Provider Registered Nurse Emergency | DX: M70.61 Trochanteric bursitis, right hip (principal); M96.1 Postlaminectomy syndrome, not elsewhere classified; M53.3 Sacrococcygeal disorders, not elsewhere classified; M47.816 Spondylosis without myelopathy or radiculopathy, lumbar region | CPT/HCPCS: 20610; J3300 ==

== ENCOUNTER 2023-04-08 08:00 | Outpatient (RCR) | payer BC, SELFPAY ==
--- NOTE | 2023-03-18 14:17 | MHC.PT.EP ---
[facility] [place] Office [place] Office [place] Office [address] Ora Wasserman [address] [phone] F: [phone] F: [phone] F: [phone] F: [phone] Physical Therapy Plan of Care Date of Evaluation: 03/18/23 Date of Surgery: n/a Diagnosis: chronic back pain and hip pain Assessment: Patient is a 68 year old female presenting to PT with complaints of pain in low back and hip. Pt reports onset of pain began about 2-3 years ago after multiple falls. She presents today with impairments in pain, lumbar and hip ROM, core strength, hip strength, posture. 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 Pt expresses chcf goal of reducing pain, and is motivated to work towards this in PT. Clinical presentation today is most consistent with signs and sx associated with low back and hip pain and pt will benefit from skilled PT 2 week x 4 weeks to address the following problems and impairments noted upon evaluation: pain, lumbar and hip ROM, core strength, hip strength, posture. These problems limit the patient with the following functional activities: ADLs, lifting, bending, standing. The prescribed treatment plan of care is medically necessary. Co-morbidities of hx R hip fx with pins 2021/2022?, hx stroke 2019, osteoporosis were identified and taken into considerations of plan of care. Pt was educated on HEP, role of PT, prognosis, POC. Frequency and Duration: The patient will be seen 2x week x 4 weeks Short Term Goals: Pt will report centralization of sx in 2 weeks. Pt will demonstrate ability to perform PPT with good core control in 2 weeks. Pt will demonstrate improved hip MMT strength by 1/3 grade in 2 weeks for improved lumbopelvic stability. Prevocational/Rehabilitation Counselor Goals: Pt will demonstrate improved Bruce score by 10% in 4 weeks for improved functional mobility. Pt will demonstrate improved LEFI score by 9 points in 4 weeks for improved functional mobility. Pt will demonstrate improved ability to complete ADLs with min to no pain in 4 weeks for return to PLOF. Treatment Plan: Modalities to reduce pain, spasms and effusion. Manual therapy to restore motion and function. Therapeutic exercise to improve strength and flexibility. Neuromuscular re-education for posture and balance. Therapeutic activities to return to functional activities of daily living. Electronically signed by: Olinda Sims, PT, DPT, ATC Please sign and return to therapist. Thank you for your referral.
--- NOTE | 2023-04-08 09:02 | MHC.PT.DC ---
[facility] [place] Office [place] Office [place] Office [address] Ora Wasserman [address] [phone] F: [phone] F: [phone] F: [phone] F: [phone] Physical Therapy Discharge Report Diagnosis: chronic back pain and hip pain Date of Surgery: n/a Date of Evaluation: 03/18/23 Date of Discharge: 04/08/23 Treatments to Date: 4 Cancellations to Date: 0 No Shows to Date: 0 Discharge Status: Patient Elected to Stop Discharge Summary: 04/08/2023: She demonstrates continued antalgic gait and high pain levels. She feels no change since start of care and states she cannot afford to continue with skilled PT due to her high copay. At this time we will d/c per her request. Recommend looking into senior center to continue staying active and working on HEP. Also recommend following up with MD if pain continues. Electronically signed by: Olinda Sims, PT, DPT, ATC Please sign and return to therapist. Thank you for your referral.
== END 2023-04-08 09:02 | disposition home or self-care (01) ==
LOC: HO.PTCHIC 08:00
PROVIDERS: PCP Internal Medicine; Visit Provider Registered Nurse Emergency
DX: M53.3 Sacrococcygeal disorders, not elsewhere classified (principal); M96.1 Postlaminectomy syndrome, not elsewhere classified; M47.816 Spondylosis without myelopathy or radiculopathy, lumbar region
CPT/HCPCS: 97110; 97161; 97162